=== PATIENT | female | born 1960 | race Caucasian/White ===

== ENCOUNTER 2017-12-21 14:00 | Emergency (ER) | payer BC ==
[2017-12-21] MEDS ORDERED: SUCRALFATE 1 GM/10 ML 1 GM UD PO ONE (14:31)
[2017-12-21] MEDS ORDERED: PANTOPRAZOLE SODIUM IV 40 MG VIAL IV ONE (14:31)
[2017-12-21] MEDS ORDERED: ONDANSETRON ODT 8 MG TAB SL ONE (14:31)
[2017-12-21] MEDS ORDERED: FOLIC ACID INJ 5 MG/ML VIAL IV ONE (14:32)
--- NOTE | 2017-12-21 15:06 | RAD ---
One view chest. 2. view abdomen. Indication: hx cirrhosis vomiting blood Comparison: None. Impression: Heart size normal. Lungs clear. No free air. Multiple millimetric gallstones suspected within the gallbladder. Right upper quadrant sonogram could better evaluate as clinically indicated. Bowel gas pattern nonspecific. No abnormal calcifications. No acute osseous abnormality. Electronically signed by: Angelo Nguyen MD 12/21/2017 3:05 PM CDT
[2017-12-21] MEDS ORDERED: OCTREOTIDE ACETATE 500 MCG in SODIUM CHLORIDE 0.9% 100ML 100 ML IVPB ONE (15:36)
[2017-12-21] MEDS ORDERED: cefTRIAXone SODIUM 1 GM in SODIUM CHL 0.9% 50ML MIN-BAG+ 50 ML IVPB ONE (15:37)
[2017-12-21] MEDS: METOPROLOL TARTRATE INJ 5 MG/5 ML VIAL IV ONE ×2 (15:39→16:05)
[2017-12-21] MEDS ORDERED: MAGNESIUM SULFATE PREMIX 2GM 2 GM in PREMIX BAG 1 BAG IVPB ONE (15:41)
[2017-12-21] MEDS ORDERED: MAGNESIUM SULFATE PREMIX 2GM 50 ML IVPB ONE (15:47)
[2017-12-21] MEDS ORDERED: SODIUM CHL 0.9% 50ML MIN-BAG+ 50 ML IVPB ONE (15:47)
[2017-12-21] MEDS ORDERED: cefTRIAXone SODIUM 1 GM VIAL ONE (15:47)
[2017-12-21] MEDS ORDERED: THIAMINE HCL INJ 100 MG/ML VIAL ONE (15:49)
--- NOTE | 2017-12-21 16:07 | ED.PDOC ---
History of Present Illness - General Chief Complaint: GI Problem Stated Complaint: blood in vomit and stool Time Seen by Provider: 12/21/17 14:01 Source: patient Exam Limitations: no limitations - History of Present Illness Initial Comments: The patient is a 57-year-old female presenting to the emergency room secondary to a bloody stool yesterday afternoonand 2 episodes of vommiting blood this morning. It does not sound like a large amount of blood that she threw up. She is a known cirrhotic due to alcoholism and does have known varices. She does not take any medications but a multivitamin. She does still drink around 3 beverages a day. She does not know if she has any hepatitis B or C. She does not think so. She was feeling fine before this. She is not in particular pain currently. She is alert and oriented and cooperative. Her last episode of vomiting was approximately 6-7 hours ago. Timing/Duration: unsure Severity: moderate Improving Factors: nothing Worsening Factors: nothing Associated Symptoms: loss of appetite, malaise, nausea/vomiting Allergies/Adverse Reactions: Allergies NO KNOWN ALLERGY Allergy (Verified 10/03/15 12:10) Review of Systems - Review of Systems Constitutional: States: malaise EENTM: States: no symptoms reported Respiratory: States: no symptoms reported Cardiology: States: no symptoms reported Gastrointestinal/Abdominal: States: see HPI Genitourinary: States: no symptoms reported Musculoskeletal: States: no symptoms reported Skin: States: no symptoms reported Neurological: States: no symptoms reported Endocrine: States: no symptoms reported All other Systems: No Change from Baseline Past Medical History (General) - Patient Medical History Hx Stroke: No Hx Congestive Heart Failure: No Hx Diabetes: No Surgical History: no surgical history - Vaccination History Hx Influenza Vaccination: No Hx Pneumococcal Vaccination: No - Social History Hx Tobacco Use: Yes Hx Alcohol Use: Yes - 5-6 beer daily Hx Substance Use: No Hx Substance Use Treatment: No Hx Depression: No - Female History Patient : No Family Medical History - Family History Mother Family History: Unknown Physical Exam - Physical Exam General Appearance: Alert, No apparent distress Eye Exam: bilateral normal - she does have scleral icterus Ears, Nose, Throat: hearing grossly normal, normal ENT inspection, normal pharynx Neck: full range of motion, supple Respiratory: lungs clear, normal breath sounds, no respiratory distress, no accessory muscle use Cardiovascular/Chest: normal peripheral pulses, regular rate, rhythm, no edema Peripheral Pulses: radial,right: 2+, radial,left: 2+, dorsalis pedis,right: 2+, dorsalis pedis,left: 2+ Gastrointestinal/Abdominal: non tender, soft Rectal Exam: deferred Back Exam: normal inspection, no CVA tenderness, no vertebral tenderness Extremity: normal range of motion, non-tender, normal inspection, no pedal edema , normal capillary refill Neurologic: spinning doffer II-XII nml as tested, alert, normal mood/affect, oriented x 3 Skin Exam: other - very mild jaundice Comments: Vital Signs - 24 hr 12/21/17 14:16 Temperature 97.9 F Pulse Rate [ 99 H right brachial] Respiratory 14 Rate Blood Pressure 161/77 [right brachial ] O2 Sat by Pulse 98 Oximetry Progress - Progress Progress: 12/21/17 16:09 the patient's a 57-year-old female presenting with what is most likely a variceal bleed. Vital signs have remained relatively stable. She has received one small dose of IV Lopressor for moderate hypertension. She is receiving a dose of Rocephin prophylactically. She is also receiving 2 g of magnesium for hypomagnesemia. She has received a dose of thiamine and folate as well as a dose of Ativan. She has received a dose of Protonix and Carafate. She is also being started on octreotide drip. She does have elevations of her AST, ALT, alkaline phosphatase and bilirubin levels. Additional biliary disease has not been ruled out in this patient. She may benefit from a right upper quadrant ultrasound. the thrombocytopenia is new when compared to labs from 2 years ago. She does have a mild elevation of her ammonia level however she is not altered at this point. The patient is being transferred for further evaluation with gastroenterology. Dr. Vang has been contacted on this patient. Transfer is appreciated. the patient does still drink. I'm uncertain if she develops withdrawal symptoms. - Results/Orders Results/Orders: 12/21/17 14:30 Telemetry .CONTINUOUS EKG STAT UA [URINALYSIS] Stat 12/21/17 15:36 Octreotide Acetate [SandoSTATIN] 500 mcg Sodium Chloride 0.9% 100Ml [NS (NACL 0.9%) 100ml] 100 ml IVPB ONCE 12/21/17 15:41 Magnesium Sulfate Premix 2Gm 2 gm Premix Bag 1 bag IVPB ONCE 12/22/17 14:30 EKG STAT 12/22/17 14:32 Thiamine HCl Inj 100 mg IV ONCE ONE Laboratory Results - last 24 hr 12/21/17 12/21/17 12/21/17 15:04 15:04 15:04 WBC 4.4 L RBC 3.03 L Hgb 10.8 L Hct 31.7 L MCV 104.4 H MCH 35.6 H MCHC 34.0 RDW 16.6 H Plt Count 49 L* MPV 11.8 H Absolute Neuts (auto) 3.60 Absolute Lymphs (auto) 0.50 L Absolute Monos (auto) 0.20 Absolute Eos (auto) 0.00 Absolute Basos (auto) 0.00 Neutrophils % 81.7 H Lymphocytes % 12.5 L Monocytes % 5.1 Eosinophils % 0.1 L Basophils % 0.6 PT 18.9 H INR 1.90 H PTT (SP) 28.1 Sodium 143 Potassium 3.7 Chloride 106 Carbon Dioxide 23 Anion Gap 17.7 BUN 16 Creatinine < 0.40 L BUN/Creatinine Ratio 40.0 H Random Glucose 157 H Serum Osmolality 289.4 Calcium 9.0 Magnesium 1.2 L Total Bilirubin 4.4 H* AST 114 H ALT 34 Alkaline Phosphatase 155 H Ammonia Creatine Kinase 93 CK-MB (CK-2) 3.3 CK-MB (CK-2) % Not Reportable Troponin I 0.03 B-Natriuretic Peptide 53.3 Serum Total Protein 7.4 Albumin 2.4 L Globulin 5.0 H Albumin/Globulin Ratio 0.5 L Amylase 28 Lipase 46 12/21/17 15:04 WBC RBC Hgb Hct MCV MCH MCHC RDW Plt Count MPV Absolute Neuts (auto) Absolute Lymphs (auto) Absolute Monos (auto) Absolute Eos (auto) Absolute Basos (auto) Neutrophils % Lymphocytes % Monocytes % Eosinophils % Basophils % PT INR PTT (SP) Sodium Potassium Chloride Carbon Dioxide Anion Gap BUN Creatinine BUN/Creatinine Ratio Random Glucose Serum Osmolality Calcium Magnesium Total Bilirubin AST ALT Alkaline Phosphatase Ammonia 59 H* Creatine Kinase CK-MB (CK-2) CK-MB (CK-2) % Troponin I B-Natriuretic Peptide Serum Total Protein Albumin Globulin Albumin/Globulin Ratio Amylase Lipase acute abdominal series shows some stones in the gallbladder. Otherwise benign series. EKG shows normal sinus rhythm at 90 bpm with occasional PVCs. There is slow R- wave transition and anterior leads. No ST segment or T-wave changes consistent with acute ischemia. Normal axis. Possible Q waves in lead 3. Departure - Departure Clinical Impression: Cirrhosis of liver, Bleeding esophageal varices in alcoholic cirrhosis, Hypomagnesemia Disposition: Transfer to Hospital Transfer to Outside Facility - Transfer Information Accepting Provider:: dr parker Accepting Facility: [facility] Reason for Transfer: required specialist not available
[2017-12-21] MEDS ORDERED: SODIUM CHLORIDE 0.9% 100ML 100 ML IVPB ONE (16:20)
[2017-12-21] MEDS ORDERED: OCTREOTIDE ACETATE 100 MCG/ML VIAL ONE (16:21)
[2017-12-21 17:07] VITALS: BP 120/74; O2SAT 97
[2017-12-21 17:31] VITALS: TEMP 99.5
[2017-12-22] MEDS ORDERED: THIAMINE HCL INJ 100 MG/ML VIAL IV ONE (14:32)
== END 2017-12-21 17:10 | disposition short-term general hospital (02) ==
LOC: ER 14:00
DX: K70.30 Alcoholic cirrhosis of liver without ascites (principal); I85.11 Secondary esophageal varices with bleeding; E83.42 Hypomagnesemia; I49.3 Ventricular premature depolarization; K80.20 Calculus of gallbladder without cholecystitis without obstruction; K92.1 Melena; Z87.891 Personal history of nicotine dependence
CPT/HCPCS: 36415; 74019; 80053; 82140; 82150; 82550; 82553; 83690; 83735; 83880; 84484; 85025; 85610; 85730; 93005; J0696; J2060; J2354; J3411; J3475; J7050

== ENCOUNTER → 2019-03-20 | Outpatient (CLI) | payer BC | LOC: GMAE 15:01 | PROVIDERS: ATTEND Family Medicine | DX: K70.31 Alcoholic cirrhosis of liver with ascites (principal) ==

== ENCOUNTER → 2019-11-12 | Outpatient (CLI) | payer BC ==
--- NOTE | 2019-11-12 10:31 | US ---
EXAM DESCRIPTION: Abdomen,Complete: Ultrasound. CLINICAL HISTORY: 59 years FemaleALCOHOLIC CIRRHOSIS OF LIVER WITH ASCITES COMPARISON: None Available. TECHNIQUE: Transabdominal scanning: grayscale and Doppler modes. FINDINGS: Gallbladder: normal size, shape, echogenicity; no intraluminal stones or sludge. No fluid around the gallbladder. No wall thickening. 2.6 mm. Non-tender with transducer pressure. Common bile duct: caliber 5.8 mm within normal limits. Liver: Heterogeneously increased echogenicity; contour liver capsule smooth where seen. No fluid around the liver. Intrahepatic biliary ducts normal caliber. No flow in the portal vein on color Doppler evaluation 6.1 mm diameter.. Long axis right lobe 12.3 cm. Pancreas: normal size and echogenicity. Duct not seen. Complete abdominal aorta: Normal caliber from the proximal segment to the distal bifurcation.. IVC: visualized and normal caliber. Right kidney: long axis measures 10.7 cm; volume 160.5 mL.. Normal cortical echogenicity.. 1.2 mm cortical thickness. No echogenic stones; no hydronephrosis. Left kidney: long axis measures 9.9 cm; volume 136.2 mL. Normal cortical echogenicity. 1.2 cm cortical thickness. No echogenic stones; no hydronephrosis. Spleen: Normal. No focal lesions.. 11.3 cm long axis. Other: None. IMPRESSION: 1. Steatosis of the liver but normal size. No focal lesions. Decreased caliber of the portal vein with no flow detected. This raises concern for thrombosis, but no obvious thrombosis on these images. Correlate with clinical findings and consider CT scan of the abdomen with IV contrast arterial and portal venous and delayed images. Pancreas is unremarkable. Smooth hepatic capsule. No ascites. 2. Bilateral kidneys with thin cortex which may be age-related. Normal caliber of the IVC and proximal abdominal aorta. 3. Gallbladder, spleen, and common bile duct are unremarkable. Electronically signed by: Isaias Alonzo MD 11/12/2019 10:30 AM CDT
== END ==
LOC: US 09:00
PROVIDERS: ATTEND Internal Medicine Gastroenterology
DX: K70.31 Alcoholic cirrhosis of liver with ascites (principal); K76.0 Fatty (change of) liver, not elsewhere classified; I87.9 Disorder of vein, unspecified; N28.9 Disorder of kidney and ureter, unspecified

== ENCOUNTER → 2019-11-21 | Outpatient (CLI) | payer BC | LOC: LAB.O 11:21 | PROVIDERS: ATTEND Internal Medicine Gastroenterology | DX: R94.5 Abnormal results of liver function studies (principal); K70.31 Alcoholic cirrhosis of liver with ascites ==

== ENCOUNTER 2019-12-19 05:17 | Day surgery (SDC) | payer BC ==
[2019-12-19] MEDS ORDERED: LACTATED RINGERS 1,000 ML ONE ×2 (05:50→11:37)
[2019-12-19] MEDS ORDERED: LIDOCAINE 1% 10 ML VIAL INJ ONE (07:00)
[2019-12-19] MEDS ORDERED: PROPOFOL 200 MG/20 ML VIAL IV ONE (07:00)
[2019-12-19 12:35] VITALS: BP 156/83; TEMP 97.4; O2SAT 97
--- NOTE | 2019-12-19 13:13 | OP ---
DATE OF PROCEDURE: 12/19/19 PREOPERATIVE DIAGNOSIS: 1. Patient with a history of cirrhosis, need to screen for varices. 2. Average risk colon cancer screen, this is her first colonoscopy. POSTOPERATIVE DIAGNOSIS: 1. Grade 1 esophageal varices. 2. Cecal polyps. 3. Sigmoid diverticulosis. 4. Internal hemorrhoids. PROCEDURE: 1. EGD 2. Colonoscopy plus polypectomy. SURGEON: Mike Alexander MD. COMPLICATIONS: None apparent. BLOOD LOSS: None. MEDICATIONS: Monitored anesthesia care. DESCRIPTION OF PROCEDURE: Informed consent was obtained prior to sedation. The preprocedure cardiopulmonary assessment was satisfactory. The patient was placed in the left lateral decubitus position and was sedated. The tip of the Olympus esophagogastroduodenoscope was inserted in the oropharynx and carefully advanced through the cricopharyngeus into the esophageal lumen. The esophagus revealed three columns of grade 1 esophageal varices. They flattened out with insufflation. There was no stigmata of recent hemorrhage. The esophagus was otherwise unremarkable. The stomach was examined with direct and retroflexed views. The antrum, body, fundus, cardia and incisura were closely examined. There was no evidence of portal hypertensive gastropathy or gastric varices. The stomach was normal. The duodenum was unremarkable down to the second portion. The scope was then removed from the patient. The patient was rotated 180 degrees. A digital rectal exam revealed no significant abnormalities. The tip of the Olympus colonoscope was inserted in the rectum and guided over to the cecum. The cecum was identified by locating the ileocecal valve and appendiceal orifice. The prep was excellent. The [place] Bowel Prep Score was 9. The mucosa of the cecum, ascending colon, hepatic flexure, transverse colon, splenic flexure, descending colon and sigmoid colon was closely examined. Retroflexed view of the right colon was obtained. 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 It had a maximum diameter of about 2 cm. This was removed in a piecemeal fashion with a hot snare. That was the only polyp seen in the colon. The patient had a few sigmoid diverticula. The patient has internal hemorrhoids on retroflexed view of the rectum. The colon was otherwise unremarkable. RECOMMENDATIONS: 1. Followup pathology for the polyp. 2. Continue complete abstinence from alcohol. 3. Followup with me in the [place] office in January. We will talk about using a beta cassius at that time for variceal bleeding prophylaxis. #[id number] cc: Michelle Bradley MD MTDD
== END 2019-12-19 12:33 | disposition home or self-care (01) ==
LOC: AMB 05:17
PROVIDERS: ATTEND Internal Medicine Gastroenterology
DX: Z12.11 Encounter for screening for malignant neoplasm of colon (principal); D12.0 Benign neoplasm of cecum; K70.31 Alcoholic cirrhosis of liver with ascites; I85.10 Secondary esophageal varices without bleeding; K57.30 Diverticulosis of large intestine without perforation or abscess without bleeding; K64.8 Other hemorrhoids; I73.9 Peripheral vascular disease, unspecified; Z87.891 Personal history of nicotine dependence; Z79.899 Other long term (current) drug therapy
CPT/HCPCS: 00813; 43235; 45385; J7120

== ENCOUNTER → 2020-02-18 | Outpatient (CLI) | payer BC ==
--- NOTE | 2020-02-18 17:56 | CT ---
EXAM DESCRIPTION: Head w/wo Contrast CLINICAL HISTORY: benign neoplasm of brain COMPARISON: None available TECHNIQUE: Transaxial images were obtained without and with intravenous contrast media. Sagittal and coronal reconstruction was performed..This exam was performed according to our departmental dose-optimization program, which includes automated exposure control, adjustment of the mA and/or kV according to patient size and/or use of iterative reconstruction technique. FINDINGS: Portions of the paranasal sinuses and orbits imaged are normal. The mastoid sinus air cells are clear. Prominence of the ventricular system and cortical sulci are observed consistent with atrophy. The exam reveals some dural calcification in the right frontal region. There is evidence of prior right frontal craniotomy. Encephalomalacia is observed in the right frontal lobe. Minimal dural calcification is also observed on the left. No mass lesions or mass effect are observed. No intracranial hemorrhage is observed. No abnormal enhancement is noted. IMPRESSION: 1. The patient is post right frontal craniotomy with some dural calcification in the frontal regions bilaterally. 2. Encephalomalacia is observed in the right frontal lobe and may be the result of prior surgery. No recurrent neoplasm is detected. Electronically signed by: Sarabjit Malin MD 02/18/2020 5:54 PM [facility]
== END ==
LOC: CT 13:23
PROVIDERS: ATTEND Neurological Surgery
DX: Z01.812 Encounter for preprocedural laboratory examination (principal); D33.1 Benign neoplasm of brain, infratentorial; G93.89 Other specified disorders of brain; Z98.890 Other specified postprocedural states